=== PATIENT | female | born 1990 | race Caucasian/White ===

== ENCOUNTER → 2017-10-11 | Outpatient (CLI) | payer OTHER ==
[2016-09-11 16:27] VITALS: BMI 32.3
[~2017-10-11] MED LIST: ACE3 PO; ACET-1718 PO; AMOX-559 PO; IBUP800T37 PO; LEVO150T72 PO; METO-224 PO; POLY10DR20 OP; [UNRECOGNIZED DRUG - CODE] PO
== END ==
LOC: LAB 15:09
PROVIDERS: ATTEND Nurse Practitioner Primary Care
DX: Z02.9 Encounter for administrative examinations, unspecified (principal)

== ENCOUNTER → 2017-10-11 | Outpatient (CLI) | payer OTHER ==
[2016-09-11 16:27] VITALS: BMI 32.3
== END ==
LOC: LAB 15:11
PROVIDERS: ATTEND Nurse Practitioner Primary Care
DX: E03.9 Hypothyroidism, unspecified (principal)
CPT/HCPCS: 36415; 84443

== ENCOUNTER → 2018-05-28 | Outpatient (REF) ==
[2016-09-11 16:27] VITALS: BMI 32.3
[2018-05-28 09:28] LABS: LDL CHOLESTEROL 96 mg/dl
== END ==
DX: Z02.9 Encounter for administrative examinations, unspecified (principal)

== ENCOUNTER → 2018-07-15 | Outpatient (CLI) | payer OTHER ==
[2016-09-11 16:27] VITALS: BMI 32.3
== END ==
LOC: LAB 15:44
PROVIDERS: ATTEND Surgery
DX: D22.5 Melanocytic nevi of trunk (principal)
CPT/HCPCS: 88305